=== PATIENT | female | born 1950 | race Caucasian/White ===

== ENCOUNTER → 2017-01-08 | Outpatient (RCR) ==
--- NOTE | 2016-12-15 12:04 | RS.OPPTDN ---
Subjective Date of Note: 12/15/16 Visit #: 6 Date of Evaluation: 11/24/16 Payer Source: MEDICARE Treatment Diagnosis: Low back pain, right LE radiating symptoms Current Subjective/complaints:: Patient reports she feels better overall,but had increased aching the past few days due to having to be out of town and increased time in the car. Pain Assessment - Pain Description Pain Location: low back and right LE Pain Description: Tightness Current Pain Intensity: 3/10 - Heat/Cryotherapy Treatment: Hot Pack (20 mins. prior to manual therapy.) Interventions - Exercise/Activities/Manual Therapy Exercises/Activities: HEP review discussed while receiving manual therapy today. Total minutes of Exercise: 0 Manual Therapy: 30 mins. soft tissue mobilization to lumbar ,R gluteals and R IT band . Total minutes of Manual Therapy: 30 HOME EXERCISE PROGRAM: HS and Piriformis stretch, and hip flexion isometrics ( all for right LE only) - Charges Total Direct Minutes: 30 Total Treatment Time: 50 Procedures billed for this date of service:: hp,manual therapy 2 Assessment: Patient reports relief after sesion today,improved posture in standing,no antalgic gait noted.She reports having fibromyalgia has limited her tolerance to deep tissue massage,as we used min to moderate pressure today with her feed back on how she is tolerating the treatment.Instanding ,she reports less pain with trunk rotation and walking. Patient Education: Education of diagnosis, Body/Joint mechanics, Home Exercise Program, Home Safety, Activity Modification, Education of Plan of Care Patient demonstrates compliance with HEP?: Yes Short Term Goals Goal #1: Pt consistent and independent with HEP. Goal to be met by: 12/08/16 Progress towards Goal:: Progressing Goal #2: Right SLR to 50-55 degrees. Goal to be met by: 12/08/16 Progress towards Goal:: Partially Met Goal #3: Right hip flexion 4+/5. Goal to be met by: 12/08/16 Progress towards Goal:: Progressing Goal #4: Right LE symptoms localized to the right hip/low back. Goal to be met by: 12/08/16 Progress towards Goal:: Progressing Medication Tech Goals Goal #1: Pt knows HEP and to continue ex's to maintain level of function at D/C. Goal to be met by: 01/13/17 Progress towards goal: Progressing Goal #2: Score on Oswestry LBP scale improved to less than 19% impairment. Goal to be met by: 01/13/17 Goal #3: Pt to sleep at night without interruption from LE pain. Goal to be met by: 01/13/17 Progress towards goal: Progressing Goal #4: Pt able to ascend/descend stairs w/ minimal discomfort or difficulty. Goal to be met by: 01/13/17 Progress towards goal: Progressing Plan PLAN OF CARE EXPIRES ON:: 01/13/17 ORDER # VISITS AND/OR THROUGH DATE: 01/13/17 PLAN: Patient can benefit from skilled therapy to decrease radiculopathy in the R hip/LE,increase the extensibility of the hamstrings to rerduce LBP.
--- NOTE | 2016-12-18 12:50 | RS.OPPTDN ---
Subjective Date of Note: 12/18/16 Visit #: 7 Date of Evaluation: 11/24/16 Payer Source: MEDICARE Treatment Diagnosis: Low back pain, right LE radiating symptoms Current Subjective/complaints:: Patient reports relief for about 24 hours after last PT session,also having a good day today.She also reports today she feels elevated on the R side ,referring to her hip and back,but less pain. Pain Assessment - Pain Description Pain Location: low back and right LE Pain Description: Tightness Current Pain Intensity: 3/10 Other Comments regarding Pain:: "slightly less than 3/10 today" - Heat/Cryotherapy Treatment: Hot Pack (20 mins.prior to lumbar traction) - Traction Treatment Method: Mechanical, Intermittent, Lumbar Patient Position: Supine Amount of Force Applied: 45# Hold Time: 30 secs. Rest Time: 5 secs. Duration of treatment: 10 mins. Traction Treatment Comment: Tolerates well. Interventions - Exercise/Activities/Manual Therapy Exercises/Activities: 15 mins. ,SKTC,90/90 hamstring stretches,piriformis stretches. Total minutes of Exercise: 15 Manual Therapy: NA Total minutes of Manual Therapy: 0 HOME EXERCISE PROGRAM: HS and Piriformis stretch, and hip flexion isometrics ( all for right LE only) - Charges Total Direct Minutes: 15 Total Treatment Time: 45 Procedures billed for this date of service:: hp,ex ,traction Assessment: Patient reports less intensity and less duration of pain the past couple of days.Her most tender area to palpate is the origin site of the hamstrings,especially with prolonged sitting.She has no leg length discrepancy noted in supine today. Patient Education: Body/Joint mechanics, Home Exercise Program, Activity Modification, Education of Plan of Care Patient demonstrates compliance with HEP?: Yes Short Term Goals Goal #1: Pt consistent and independent with HEP. Goal to be met by: 12/08/16 Progress towards Goal:: Progressing Goal #2: Right SLR to 50-55 degrees. Goal to be met by: 12/08/16 Progress towards Goal:: Met Goal #3: Right hip flexion 4+/5. Goal to be met by: 12/08/16 Progress towards Goal:: Partially Met Goal #4: Right LE symptoms localized to the right hip/low back. Goal to be met by: 12/08/16 Progress towards Goal:: Progressing Project Development Coordinator Goals Goal #1: Pt knows HEP and to continue ex's to maintain level of function at D/C. Goal to be met by: 01/13/17 Progress towards goal: Partially Met Goal #2: Score on Oswestry LBP scale improved to less than 19% impairment. Goal to be met by: 01/13/17 Goal #3: Pt to sleep at night without interruption from LE pain. Goal to be met by: 01/13/17 Progress towards goal: Progressing Goal #4: Pt able to ascend/descend stairs w/ minimal discomfort or difficulty. Goal to be met by: 01/13/17 Progress towards goal: Progressing Plan PLAN OF CARE EXPIRES ON:: 01/13/17 ORDER # VISITS AND/OR THROUGH DATE: 01/13/17 PLAN: Continue skilled PT to reduce back pain ,especially on uneven surfaces, such as steps.
--- NOTE | 2016-12-25 12:45 | RS.OPPTDN ---
Subjective Date of Note: 12/22/16 Visit #: 8 Date of Evaluation: 11/24/16 Payer Source: MEDICARE Treatment Diagnosis: Low back pain, right LE radiating symptoms Current Subjective/complaints:: Patient reports significant relief after the last session.Pleased with the lumbar traction results. Pain Assessment - Pain Description Pain Location: none today Current Pain Intensity: 0 - Heat/Cryotherapy Treatment: Hot Pack (20 mins. prior to lumbar traction) - Traction Treatment Method: Mechanical, Intermittent, Lumbar Patient Position: Supine Amount of Force Applied: 50# Hold Time: 30 secs Rest Time: 5 secs Duration of treatment: 15 mins. Traction Treatment Comment: tolerates well,but reports brief episode of R LE sciatica during traction ,relieved by re-positioning the leg Interventions - Exercise/Activities/Manual Therapy Exercises/Activities: HEP review only today while on moist heat. Total minutes of Exercise: 0 Manual Therapy: NA Total minutes of Manual Therapy: 0 HOME EXERCISE PROGRAM: HS and Piriformis stretch, SKTC.DKTC as tolerated. - Charges Total Direct Minutes: 0 Total Treatment Time: 35 Procedures billed for this date of service:: hp,traction Assessment: Patient reports relief again today after traction,and also no pain as she stands and exits the clinic.She is tolerating riding in the car better, and less temderness present in the ischial tuberosities upon palpation Patient Education: Education of diagnosis, Body/Joint mechanics, Home Exercise Program, Home Safety, Activity Modification, Education of Plan of Care Patient demonstrates compliance with HEP?: Yes Short Term Goals Goal #1: Pt consistent and independent with HEP. Goal to be met by: 12/08/16 Progress towards Goal:: Progressing Goal #2: Right SLR to 50-55 degrees. Goal to be met by: 12/08/16 Progress towards Goal:: Met Goal #3: Right hip flexion 4+/5. Goal to be met by: 12/08/16 Progress towards Goal:: Partially Met Goal #4: Right LE symptoms localized to the right hip/low back. Goal to be met by: 12/08/16 Progress towards Goal:: Partially Met Color Making Supervisor Goals Goal #1: Pt knows HEP and to continue ex's to maintain level of function at D/C. Goal to be met by: 01/13/17 Progress towards goal: Partially Met Goal #2: Score on Oswestry LBP scale improved to less than 19% impairment. Goal to be met by: 01/13/17 Goal #3: Pt to sleep at night without interruption from LE pain. Goal to be met by: 01/13/17 Progress towards goal: Progressing Goal #4: Pt able to ascend/descend stairs w/ minimal discomfort or difficulty. Goal to be met by: 01/13/17 Progress towards goal: Progressing Plan PLAN OF CARE EXPIRES ON:: 01/13/17 ORDER # VISITS AND/OR THROUGH DATE: 01/13/17 PLAN: Continue PT to localize and minimize LBP,eliminate scitica in the R LE.
--- NOTE | 2016-12-25 12:55 | RS.OPPTDN ---
Subjective Date of Note: 12/25/16 Visit #: 9 Date of Evaluation: 11/24/16 Payer Source: MEDICARE Treatment Diagnosis: Low back pain, right LE radiating symptoms Current Subjective/complaints:: Patient reports she felt good the day of last treatment ,but the sciatica was present yesterday and today.We discussed doing traction with less poundage and less session time. Pain Assessment - Pain Description Pain Location: none today Pain Description: Radiating Current Pain Intensity: 2-3 - Traction Treatment Method: Mechanical, Intermittent, Lumbar Patient Position: Supine Amount of Force Applied: 45 Hold Time: 30 secs. Rest Time: 5 secs. Duration of treatment: 10 mins. Traction Treatment Comment: Tolerated better with no radiculopathy present today. Interventions - Exercise/Activities/Manual Therapy Exercises/Activities: 20 mins. SKTC,DKTC,90/90 hamstring stretches,piriformis stretch on R. Total minutes of Exercise: 20 Manual Therapy: NA Total minutes of Manual Therapy: 0 HOME EXERCISE PROGRAM: HS and Piriformis stretch, SKTC.DKTC as tolerated. - Charges Total Direct Minutes: 30 Total Treatment Time: 50 Procedures billed for this date of service:: hp,ex, traction Assessment: Patient has less frequency and duration of pain in general while doing ADL's.She has improved hamstring extensibility,reducing the tenderness at the origin of hamstrings. Patient Education: Education of diagnosis, Body/Joint mechanics, Home Exercise Program, Home Safety, Activity Modification, Education of Plan of Care Patient demonstrates compliance with HEP?: Yes Short Term Goals Goal #1: Pt consistent and independent with HEP. Goal to be met by: 12/08/16 Progress towards Goal:: Partially Met Goal #2: Right SLR to 50-55 degrees. Goal to be met by: 12/08/16 Progress towards Goal:: Met Goal #3: Right hip flexion 4+/5. Goal to be met by: 12/08/16 Progress towards Goal:: Met Goal #4: Right LE symptoms localized to the right hip/low back. Goal to be met by: 12/08/16 Progress towards Goal:: Partially Met Torch Heater Goals Goal #1: Pt knows HEP and to continue ex's to maintain level of function at D/C. Goal to be met by: 01/13/17 Progress towards goal: Partially Met Goal #2: Score on Oswestry LBP scale improved to less than 19% impairment. Goal to be met by: 01/13/17 Goal #3: Pt to sleep at night without interruption from LE pain. Goal to be met by: 01/13/17 Progress towards goal: Progressing Goal #4: Pt able to ascend/descend stairs w/ minimal discomfort or difficulty. Goal to be met by: 01/13/17 Progress towards goal: Progressing Plan PLAN OF CARE EXPIRES ON:: 01/13/17 ORDER # VISITS AND/OR THROUGH DATE: 01/13/17 PLAN: Continue treatment to localize the LBP,strengthen LE's and trunk for stability.
--- NOTE | 2016-12-29 13:05 | RS.OPPTDN ---
Subjective Date of Note: 12/29/16 Visit #: 10 Date of Evaluation: 11/24/16 Payer Source: MEDICARE Treatment Diagnosis: Low back pain, right LE radiating symptoms Current Subjective/complaints:: Reports having a good day today ,very minimal pain currently.She reports standing in one position for prolonged times causes her pain to elevate,such as while cooking.She had follow up appt. last week at [facility],has orders to continue PT. Pain Assessment - Pain Description Pain Description: Dull, Aching Current Pain Intensity: 02/18 - Traction Treatment Method: Mechanical, Intermittent, Lumbar Patient Position: Supine Amount of Force Applied: 45 Hold Time: 30 secs. Rest Time: 5 secs. Duration of treatment: 15mins. Interventions - Exercise/Activities/Manual Therapy Exercises/Activities: HEP review of SKTC,DKTC,90/90 hamstring stretches, piriformis stretch on R. Total minutes of Exercise: 0 Manual Therapy: NA Total minutes of Manual Therapy: 0 HOME EXERCISE PROGRAM: HS and Piriformis stretch, SKTC.DKTC as tolerated. - Charges Total Direct Minutes: 0 Total Treatment Time: 40 Procedures billed for this date of service:: hp,traction Assessment: Patient reports significant relief from traction.Her intensity and frequency of LBP is better.She reports sleeping better ,going up and down steps with less pain. Patient Education: Education of diagnosis, Body/Joint mechanics, Home Exercise Program, Home Safety, Activity Modification, Education of Plan of Care Patient demonstrates compliance with HEP?: Yes Short Term Goals Goal #1: Pt consistent and independent with HEP. Goal to be met by: 12/08/16 Progress towards Goal:: Partially Met Goal #2: Right SLR to 50-55 degrees. Goal to be met by: 12/08/16 Progress towards Goal:: Met Goal #3: Right hip flexion 4+/5. Goal to be met by: 12/08/16 Progress towards Goal:: Met Goal #4: Right LE symptoms localized to the right hip/low back. Goal to be met by: 12/08/16 Progress towards Goal:: Partially Met Senior Living Goals Goal #1: Pt knows HEP and to continue ex's to maintain level of function at D/C. Goal to be met by: 01/13/17 Progress towards goal: Partially Met Goal #2: Score on Oswestry LBP scale improved to less than 19% impairment. Goal to be met by: 01/13/17 Goal #3: Pt to sleep at night without interruption from LE pain. Goal to be met by: 01/13/17 Progress towards goal: Progressing Goal #4: Pt able to ascend/descend stairs w/ minimal discomfort or difficulty. Goal to be met by: 01/13/17 Progress towards goal: Progressing Plan PLAN OF CARE EXPIRES ON:: 01/13/17 ORDER # VISITS AND/OR THROUGH DATE: 01/13/17 PLAN: Continue PT to improve core strength , and LE strength ,resulting less back pain with ADL's.
--- NOTE | 2016-12-31 13:01 | RS.OPPTDN ---
Subjective Date of Note: 12/31/16 Visit #: 11 Date of Evaluation: 11/24/16 Payer Source: MEDICARE Treatment Diagnosis: Low back pain, right LE radiating symptoms Current Subjective/complaints:: Patient reports going to ball game last night, tolerated it better by frequently changing positions for pressure relief.No pain today. Pain Assessment - Pain Description Pain Location: low back/hips Pain Description: 0 - Heat/Cryotherapy Treatment: Hot Pack (20 mins. prior to exercises and traction) - Traction Treatment Method: Mechanical, Intermittent, Lumbar Patient Position: Supine Amount of Force Applied: 45# Hold Time: 30 secs. Rest Time: 5 secs. Duration of treatment: 15 mins. Interventions - Exercise/Activities/Manual Therapy Exercises/Activities: Patient instructed in yellow theraband exercises for postural pullbacks at different angles of pull for core strengthening. Total minutes of Exercise: 15 Manual Therapy: NA HOME EXERCISE PROGRAM: HS and Piriformis stretch, SKTC.DKTC as tolerated. - Charges Total Direct Minutes: 15 Total Treatment Time: 50 Procedures billed for this date of service:: hp,ex 1,traction Assessment: Patient progressing well.She is tolerating longer time periods of sitting with less back pain.She reports it is easier to go up steps,but comes down steps sideways more for safety ,not pain related.Her pain when present is now more localized,less radiculopathy. Patient Education: Body/Joint mechanics, Home Exercise Program, Home Safety, Activity Modification, Education of Plan of Care Patient demonstrates compliance with HEP?: Yes Short Term Goals Goal #1: Pt consistent and independent with HEP. Goal to be met by: 12/08/16 Progress towards Goal:: Partially Met Goal #2: Right SLR to 50-55 degrees. Goal to be met by: 12/08/16 Progress towards Goal:: Met Goal #3: Right hip flexion 4+/5. Goal to be met by: 12/08/16 Progress towards Goal:: Met Goal #4: Right LE symptoms localized to the right hip/low back. Goal to be met by: 12/08/16 Progress towards Goal:: Partially Met Local Area Network Systems Adminstrator Goals Goal #1: Pt knows HEP and to continue ex's to maintain level of function at D/C. Goal to be met by: 01/13/17 Progress towards goal: Partially Met Goal #2: Score on Oswestry LBP scale improved to less than 19% impairment. Goal to be met by: 01/13/17 Goal #3: Pt to sleep at night without interruption from LE pain. Goal to be met by: 01/13/17 Progress towards goal: Partially Met Goal #4: Pt able to ascend/descend stairs w/ minimal discomfort or difficulty. Goal to be met by: 01/13/17 Progress towards goal: Progressing Plan PLAN OF CARE EXPIRES ON:: 01/13/17 ORDER # VISITS AND/OR THROUGH DATE: 01/13/17 PLAN: Progress to core strengthening as the back pain lessens.
--- NOTE | 2017-01-02 13:35 | RS.PTSUM ---
Progress Note/Summary Date of Note: 12/29/16 Date of Evaluation: 11/24/16 Number of Visits: 10 Reporting Period for this Progress Note: 11/24/16 through 12/29/16 Current Complaints/Gains: Patient states she is pleased with her progress.She continues to have difficulty with prolonged sitting or standing, but the pain is less intense. Objective Measurements/Presentation: Improved ability to ascend/descend stairs with less pain. Sleeping is better. Reports less frequency of sciatica. SLR does not reproduce pain. G Codes: Body pos current CJ. body pos goal CI Source of G Code Score: Oswestry LBP - Short Term Goals Goal #1: Pt consistent and independent with HEP. Goal to be met by: 01/16/17 Progress towards Goal:: Partially Met Goal #2: Right SLR to 50-55 degrees. Goal to be met by: 12/08/16 Progress towards Goal:: Met Goal #3: Right hip flexion 4+/5. Goal to be met by: 12/08/16 Progress towards Goal:: Met Goal #4: Right LE symptoms localized to the right hip/low back. Goal to be met by: 01/16/17 Progress towards Goal:: Partially Met - Pathology Collector Goals Goal #1: Pt knows HEP and to continue ex's to maintain level of function at D/C. Goal to be met by: 02/01/17 Progress towards goal: Partially Met Goal #2: Score on Oswestry LBP scale improved to less than 19% impairment. Goal to be met by: 02/01/17 Goal #3: Pt to sleep at night without interruption from LE pain. Goal to be met by: 02/01/17 Progress towards goal: Partially Met Goal #4: Pt able to ascend/descend stairs w/ minimal discomfort or difficulty. Goal to be met by: 02/01/17 Progress towards goal: Progressing - Assessment Assessment of Improvement/Progress: Patient reports less intensity of pain. She is sleeping better. Reports continued difficulty with prolonged sitting and standing. Received new order for continued treatment. Patient would like to continue. She shows potential to benefit from further therapy to get more relief of pain. - Plan Plan: Continue Plan of Care PLAN OF CARE EXPIRES ON:: 02/01/17 ORDER # VISITS AND/OR THROUGH DATE: 02/01/17
--- NOTE | 2017-01-05 12:10 | RS.OPPTDN ---
Subjective Date of Note: 01/05/17 Visit #: 12 Date of Evaluation: 11/24/16 Payer Source: MEDICARE Treatment Diagnosis: Low back pain, right LE radiating symptoms Current Subjective/complaints:: Reports feeling good today,has been doing her stretches over the weekend. Pain Assessment - Pain Description Current Pain Intensity: 0 - Heat/Cryotherapy Treatment: Hot Pack (20 mins. prior to ex and traction) - Traction Treatment Method: Mechanical, Intermittent, Lumbar Patient Position: Supine Amount of Force Applied: 45# Hold Time: 30 secs. Rest Time: 5 secs. Duration of treatment: 20 mins. Traction Treatment Comment: Tolerates well today. Interventions - Exercise/Activities/Manual Therapy Exercises/Activities: 15 mins. total of 90/90 hams. stretch,piriformis stretch, alternating hip flexion.4-pt. quads,20.Step-ups on 4 " step x 10 reps. Total minutes of Exercise: 15 Manual Therapy: NA HOME EXERCISE PROGRAM: HS and Piriformis stretch, SKTC.DKTC as tolerated. - Charges Total Direct Minutes: 15 Total Treatment Time: 55 Procedures billed for this date of service:: hp,ex,traction Assessment: Patient reports sleeping better in different positions.He r LE and core strength is improvong.She is tolerating prolonged standing positions better with less difficulty.She has improved awareness of position when symptoms appear. Patient Education: Education of diagnosis, Body/Joint mechanics, Home Exercise Program, Home Safety, Activity Modification, Education of Plan of Care Patient demonstrates compliance with HEP?: Yes Short Term Goals Goal #1: Pt consistent and independent with HEP. Goal to be met by: 01/16/17 Progress towards Goal:: Partially Met Goal #2: Right SLR to 50-55 degrees. Goal to be met by: 12/08/16 Progress towards Goal:: Met Goal #3: Right hip flexion 4+/5. Goal to be met by: 12/08/16 Progress towards Goal:: Met Goal #4: Right LE symptoms localized to the right hip/low back. Goal to be met by: 01/16/17 Progress towards Goal:: Partially Met Retirement Goals Goal #1: Pt knows HEP and to continue ex's to maintain level of function at D/C. Goal to be met by: 02/01/17 Progress towards goal: Partially Met Goal #2: Score on Oswestry LBP scale improved to less than 19% impairment. Goal to be met by: 02/01/17 Progress towards goal: Progressing Goal #3: Pt to sleep at night without interruption from LE pain. Goal to be met by: 02/01/17 Progress towards goal: Partially Met Goal #4: Pt able to ascend/descend stairs w/ minimal discomfort or difficulty. Goal to be met by: 02/01/17 Progress towards goal: Progressing Plan PLAN OF CARE EXPIRES ON:: 02/01/17 ORDER # VISITS AND/OR THROUGH DATE: 02/01/17 PLAN: Continue PT to eliminate back pain during ADL 's.
--- NOTE | 2017-01-08 12:59 | RS.OPPTDN ---
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 Pain Assessment - Pain Description Current Pain Intensity: 0 at rest - Heat/Cryotherapy Treatment: Hot Pack (20 mins. prior to traction.) - Traction Treatment Method: Mechanical, Intermittent, Lumbar Patient Position: Supine Amount of Force Applied: 50 # Hold Time: 30 secs. Rest Time: 5 secs. Duration of treatment: 15 mins. Traction Treatment Comment: Tolerates well. Interventions - Exercise/Activities/Manual Therapy Exercises/Activities: N/A Total minutes of Exercise: 0 Manual Therapy: NA Total minutes of Manual Therapy: 0 HOME EXERCISE PROGRAM: HS and Piriformis stretch, SKTC.DKTC as tolerated. - Charges Total Direct Minutes: 0 Total Treatment Time: 35 Procedures billed for this date of service:: hp,traction Assessment: Patient progressing toward rehab goals,reports less frequency and duration of low back pain while doing daily tasks.She is highly motivated to improve , compliant to all recommendations of the therapy staff. Patient Education: Body/Joint mechanics, Education of Plan of Care Patient demonstrates compliance with HEP?: Yes Short Term Goals Goal #1: Pt consistent and independent with HEP. Goal to be met by: 01/16/17 Progress towards Goal:: Partially Met Goal #2: Right SLR to 50-55 degrees. Goal to be met by: 12/08/16 Progress towards Goal:: Met Goal #3: Right hip flexion 4+/5. Goal to be met by: 12/08/16 Progress towards Goal:: Met Goal #4: Right LE symptoms localized to the right hip/low back. Goal to be met by: 01/16/17 Progress towards Goal:: Partially Met [facility] Goals Goal #1: Pt knows HEP and to continue ex's to maintain level of function at D/C. Goal to be met by: 02/01/17 Progress towards goal: Partially Met Goal #2: Score on Oswestry LBP scale improved to less than 19% impairment. Goal to be met by: 02/01/17 Progress towards goal: Progressing Goal #3: Pt to sleep at night without interruption from LE pain. Goal to be met by: 02/01/17 Progress towards goal: Partially Met Goal #4: Pt able to ascend/descend stairs w/ minimal discomfort or difficulty. Goal to be met by: 02/01/17 Progress towards goal: Partially Met Plan PLAN OF CARE EXPIRES ON:: 02/01/17 ORDER # VISITS AND/OR THROUGH DATE: 02/01/17 PLAN: Continue PT to resolve back pain ,improve core and LE strength.
== END ==
PROVIDERS: ATTEND Orthopaedic Surgery Orthopaedic Surgery of the Spine
DX: M54.5 Low back pain (principal)

== ENCOUNTER 2017-01-29 11:00 | Outpatient (RCR) ==
--- NOTE | 2017-01-12 11:59 | RS.OPPTDN ---
Subjective Date of Note: 01/12/17 Visit #: 14 Date of Evaluation: 11/24/16 Payer Source: MEDICARE Treatment Diagnosis: Low back pain, right LE radiating symptoms Current Subjective/complaints:: Patient reports having a good weekend, tolerating sitting for longer time periods ,such as at ball games.NO pain today, has slight muscle sorenes only in the midback. Pain Assessment - Pain Description Current Pain Intensity: 0 - Heat/Cryotherapy Treatment: Hot Pack (20 mins. prior to exercises and traction) - Traction Treatment Method: Mechanical, Intermittent, Lumbar Patient Position: Supine Amount of Force Applied: 50 Hold Time: 30 secs. Rest Time: 5 secs. Duration of treatment: 15 mins. Traction Treatment Comment: Tolerates well. Interventions - Exercise/Activities/Manual Therapy Exercises/Activities: SKTC ,DKTC ,90 /90 hamstring stretches,piriformis stretches.Alternating hip flexion , 3/10 with 4# ,in hooklying position. Total minutes of Exercise: 20 Manual Therapy: NA Total minutes of Manual Therapy: 0 HOME EXERCISE PROGRAM: HS and Piriformis stretch, SKTC.DKTC as tolerated. - Charges Timed Code Treatment Minutes: 50 Total Treatment Time: 55 Procedures billed for this date of service:: hp,ex ,traction Assessment: Patient reports sleeping better ,able to sleep in different positions without elevating or causing pain.She also tolerates gonig up and down steps with less difficulty.She has improved posture awareness. Patient Education: Education of diagnosis, Body/Joint mechanics, Home Exercise Program, Home Safety, Activity Modification, Education of Plan of Care Patient demonstrates compliance with HEP?: Yes Short Term Goals Goal #1: Pt consistent and independent with HEP. Goal to be met by: 01/16/17 Progress towards Goal:: Partially Met Goal #2: Right SLR to 50-55 degrees. Goal to be met by: 12/08/16 Progress towards Goal:: Met Goal #3: Right hip flexion 4+/5. Goal to be met by: 12/08/16 Progress towards Goal:: Met Goal #4: Right LE symptoms localized to the right hip/low back. Goal to be met by: 01/16/17 Progress towards Goal:: Partially Met [facility] Goals Goal #1: Pt knows HEP and to continue ex's to maintain level of function at D/C. Goal to be met by: 02/01/17 Progress towards goal: Partially Met Goal #2: Score on Oswestry LBP scale improved to less than 19% impairment. Goal to be met by: 02/01/17 Progress towards goal: Progressing Goal #3: Pt to sleep at night without interruption from LE pain. Goal to be met by: 02/01/17 Progress towards goal: Met Goal #4: Pt able to ascend/descend stairs w/ minimal discomfort or difficulty. Goal to be met by: 02/01/17 Progress towards goal: Partially Met Plan PLAN OF CARE EXPIRES ON:: 02/01/17 ORDER # VISITS AND/OR THROUGH DATE: 02/01/17 PLAN: Continue PT to return patient of PLOF,eliminate or mnimize back pain with ADL's.
--- NOTE | 2017-01-15 12:29 | RS.OPPTDN ---
Subjective Date of Note: 01/15/17 Visit #: 15 Date of Evaluation: 11/24/16 Payer Source: MEDICARE Treatment Diagnosis: Low back pain, right LE radiating symptoms Current Subjective/complaints:: Reports muscle spasms in the midback yesterday, but overall feels she is much better. Pain Assessment - Pain Description Pain Description: Dull, Aching Current Pain Intensity: not rated - Heat/Cryotherapy Treatment: Hot Pack (20 ins. prior to ex and traction) - Traction Treatment Method: Mechanical, Intermittent, Lumbar Patient Position: Supine Amount of Force Applied: 45 # Hold Time: 30 secs. Rest Time: 5 secs. Duration of treatment: 20 mins. Traction Treatment Comment: Tolerates well. Interventions - Exercise/Activities/Manual Therapy Exercises/Activities: Corner stretches and scapular pro/retraction exercises.HEP review. Total minutes of Exercise: 15 Manual Therapy: NA Total minutes of Manual Therapy: 0 HOME EXERCISE PROGRAM: HS and Piriformis stretch, SKTC.DKTC as tolerated. - Charges Timed Code Treatment Minutes: 35 Total Treatment Time: 55 Procedures billed for this date of service:: hp,ex ,traction Assessment: Progressing well towrd rehab goals ,less intense pain in the back with ADL's.She is very compliat to HEP. Patient Education: Education of diagnosis, Body/Joint mechanics, Home Exercise Program, Home Safety, Activity Modification, Education of Plan of Care Patient demonstrates compliance with HEP?: Yes Short Term Goals Goal #1: Pt consistent and independent with HEP. Goal to be met by: 01/16/17 Progress towards Goal:: Partially Met Goal #2: Right SLR to 50-55 degrees. Goal to be met by: 12/08/16 Progress towards Goal:: Met Goal #3: Right hip flexion 4+/5. Goal to be met by: 12/08/16 Progress towards Goal:: Met Goal #4: Right LE symptoms localized to the right hip/low back. Goal to be met by: 01/16/17 Progress towards Goal:: Met [facility] Goals Goal #1: Pt knows HEP and to continue ex's to maintain level of function at D/C. Goal to be met by: 02/01/17 Progress towards goal: Partially Met Goal #2: Score on Oswestry LBP scale improved to less than 19% impairment. Goal to be met by: 02/01/17 Progress towards goal: Progressing Goal #3: Pt to sleep at night without interruption from LE pain. Goal to be met by: 02/01/17 Progress towards goal: Met Goal #4: Pt able to ascend/descend stairs w/ minimal discomfort or difficulty. Goal to be met by: 02/01/17 Progress towards goal: Partially Met Plan PLAN OF CARE EXPIRES ON:: 02/01/17 ORDER # VISITS AND/OR THROUGH DATE: 02/01/17 PLAN: Cont. PT to eliminate back pain ,improve body mechanics for ADL's.
--- NOTE | 2017-01-19 14:08 | RS.OPPTDN ---
Subjective Date of Note: 01/19/17 Visit #: 16 Date of Evaluation: 11/24/16 Payer Source: MEDICARE Treatment Diagnosis: Low back pain, right LE radiating symptoms Current Subjective/complaints:: Patient reports lifting groceries Thursday night and aggravated her back again,has some sciatica present in the R side today. Pain Assessment - Pain Description Pain Description: Radiating, Throbbing, Aching Current Pain Intensity: 2/10 - Heat/Cryotherapy Treatment: Hot Pack (20 mins. to lumbar in supine,prior to exercises) - Traction Treatment Method: Mechanical, Intermittent, Lumbar Patient Position: Supine Amount of Force Applied: 45 # Hold Time: 30 secs. Rest Time: 5 secs. Duration of treatment: 20 mins. Traction Treatment Comment: Minimal sciatica during traction. Interventions - Exercise/Activities/Manual Therapy Exercises/Activities: SKTC,DKTC,90/90 hamstring stretches,piriformis stretches. Total minutes of Exercise: 10 Manual Therapy: NA Total minutes of Manual Therapy: 0 HOME EXERCISE PROGRAM: HS and Piriformis stretch, SKTC.DKTC as tolerated. - Charges Timed Code Treatment Minutes: 30 Total Treatment Time: 50 Procedures billed for this date of service:: hp,ex,traction Assessment: Patient has increased hamstring tightness today R > L,but responds to stretches well.She is progressing toward rehab goals. Patient Education: Education of diagnosis, Body/Joint mechanics, Home Exercise Program, Home Safety, Activity Modification, Education of Plan of Care Patient demonstrates compliance with HEP?: Yes Short Term Goals Goal #1: Pt consistent and independent with HEP. Goal to be met by: 01/16/17 Progress towards Goal:: Partially Met Goal #2: Right SLR to 50-55 degrees. Goal to be met by: 12/08/16 Progress towards Goal:: Met Goal #3: Right hip flexion 4+/5. Goal to be met by: 12/08/16 Progress towards Goal:: Met Goal #4: Right LE symptoms localized to the right hip/low back. Goal to be met by: 01/16/17 Progress towards Goal:: Met [employer] Goals Goal #1: Pt knows HEP and to continue ex's to maintain level of function at D/C. Goal to be met by: 02/01/17 Progress towards goal: Met Goal #2: Score on Oswestry LBP scale improved to less than 19% impairment. Goal to be met by: 02/01/17 Progress towards goal: Progressing Goal #3: Pt to sleep at night without interruption from LE pain. Goal to be met by: 02/01/17 Progress towards goal: Met Goal #4: Pt able to ascend/descend stairs w/ minimal discomfort or difficulty. Goal to be met by: 02/01/17 Progress towards goal: Partially Met Plan PLAN OF CARE EXPIRES ON:: 02/01/17 ORDER # VISITS AND/OR THROUGH DATE: 02/01/17 PLAN: Continue to increase core strength ,relieve back pain.
--- NOTE | 2017-01-22 12:00 | RS.OPPTDN ---
Subjective Date of Note: 01/22/17 Visit #: 17 Date of Evaluation: 11/24/16 Payer Source: MEDICARE Treatment Diagnosis: Low back pain, right LE radiating symptoms Current Subjective/complaints:: Reports the muscle soreness in the upper back is lessening.No low back pain present currently. Pain Assessment - Pain Description Current Pain Intensity: 0 in lumbar Other Comments regarding Pain:: soreness between scapulae - Heat/Cryotherapy Treatment: Hot Pack (20 mins. prior to ex and traction) - Traction Treatment Method: Mechanical, Intermittent, Lumbar Patient Position: Supine Amount of Force Applied: 45# Hold Time: 30 secs. Rest Time: 5 secs. Duration of treatment: 20 mins. Traction Treatment Comment: Tolerates well. Interventions - Exercise/Activities/Manual Therapy Exercises/Activities: 20 mins. SKTC,DKTC,90/90 hamstring stretches,piriformis stretches,LTR in hooklying position. Total minutes of Exercise: 20 Manual Therapy: NA Total minutes of Manual Therapy: 0 HOME EXERCISE PROGRAM: HS and Piriformis stretch, SKTC.DKTC as tolerated. - Charges Timed Code Treatment Minutes: 40 Total Treatment Time: 60 Procedures billed for this date of service:: hp,ex ,traction Assessment: Patient progressing well,reports increased tolerance for walking and sitting .The static stance still elevates her back pain.She has good understanding of body mechanics and pain control. Patient Education: Education of diagnosis, Body/Joint mechanics, Home Exercise Program, Home Safety, Activity Modification, Education of Plan of Care Patient demonstrates compliance with HEP?: Yes Short Term Goals Goal #1: Pt consistent and independent with HEP. Goal to be met by: 01/16/17 Progress towards Goal:: Partially Met Goal #2: Right SLR to 50-55 degrees. Goal to be met by: 12/08/16 Progress towards Goal:: Met Goal #3: Right hip flexion 4+/5. Goal to be met by: 12/08/16 Progress towards Goal:: Met Goal #4: Right LE symptoms localized to the right hip/low back. Goal to be met by: 01/16/17 Progress towards Goal:: Met [employer] Goals Goal #1: Pt knows HEP and to continue ex's to maintain level of function at D/C. Goal to be met by: 02/01/17 Progress towards goal: Met Goal #2: Score on Oswestry LBP scale improved to less than 19% impairment. Goal to be met by: 02/01/17 Progress towards goal: Progressing Goal #3: Pt to sleep at night without interruption from LE pain. Goal to be met by: 02/01/17 Progress towards goal: Met Goal #4: Pt able to ascend/descend stairs w/ minimal discomfort or difficulty. Goal to be met by: 02/01/17 Progress towards goal: Partially Met Plan PLAN OF CARE EXPIRES ON:: 02/01/17 ORDER # VISITS AND/OR THROUGH DATE: 02/01/17 PLAN: Continue PT to achieve PLOF.
--- NOTE | 2017-01-29 13:09 | RS.OPPTDN ---
Subjective Date of Note: 01/29/17 Visit #: 18 Date of Evaluation: 11/24/16 Payer Source: MEDICARE Treatment Diagnosis: Low back pain, right LE radiating symptoms Current Subjective/complaints:: Pleased with her progress,agrees with D/C plan today. Pain Assessment - Pain Description Current Pain Intensity: 0 - Heat/Cryotherapy Treatment: Hot Pack (20 mins. prior to ex ,traction) - Traction Treatment Method: Mechanical, Intermittent, Lumbar Patient Position: Supine Hold Time: 30 secs. Rest Time: 5 secs. Duration of treatment: 20 mins. Traction Treatment Comment: Tolerates well. Interventions - Exercise/Activities/Manual Therapy Exercises/Activities: 15 mins. SKTC,DKTC,90/90 hamstring stretches,piriformis stretches,LTR in hooklying position. Total minutes of Exercise: 15 Manual Therapy: NA Total minutes of Manual Therapy: 0 HOME EXERCISE PROGRAM: HS and Piriformis stretch, SKTC.DKTC as tolerated. - Charges Timed Code Treatment Minutes: 35 Total Treatment Time: 55 Procedures billed for this date of service:: hp,ex,traction Assessment: Patient progressed well,has no pain today.She tolerates up/down steps with less difficulty,no sciatica present with standing ADL's.She has good knowledge of HEP and body mechanics. Patient Education: Education of diagnosis, Body/Joint mechanics, Home Exercise Program, Home Safety, Activity Modification, Education of Plan of Care Patient demonstrates compliance with HEP?: Yes Short Term Goals Goal #1: Pt consistent and independent with HEP. Goal to be met by: 01/16/17 Progress towards Goal:: Met Goal #2: Right SLR to 50-55 degrees. Goal to be met by: 12/08/16 Progress towards Goal:: Met Goal #3: Right hip flexion 4+/5. Goal to be met by: 12/08/16 Progress towards Goal:: Met Goal #4: Right LE symptoms localized to the right hip/low back. Goal to be met by: 01/16/17 Progress towards Goal:: Met [facility] Goals Goal #1: Pt knows HEP and to continue ex's to maintain level of function at D/C. Goal to be met by: 02/01/17 Progress towards goal: Met Goal #2: Score on Oswestry LBP scale improved to less than 19% impairment. Goal to be met by: 02/01/17 Progress towards goal: Progressing Goal #3: Pt to sleep at night without interruption from LE pain. Goal to be met by: 02/01/17 Progress towards goal: Met Goal #4: Pt able to ascend/descend stairs w/ minimal discomfort or difficulty. Goal to be met by: 02/01/17 Progress towards goal: Met Plan PLAN OF CARE EXPIRES ON:: 02/01/17 ORDER # VISITS AND/OR THROUGH DATE: 02/01/17 PLAN: D/C
--- NOTE | 2017-01-30 15:33 | RS.OPPTDC ---
Date of Discharge: 01/30/17 Date of Evaluation: 11/24/16 Number of Visits: 18 Treatment Diagnosis: Low back pain, right LE radiating symptoms Current Complaints/Gains: Patient states she is pleased with her progress with therapy. States she feels so much better than when she started therapy. Reports no pain on last visit and feels confident with HEP. Reports being able to sleep without limitation from pain. Reports being able to ascend and descend steps much better with better safety and minimal to no pain. Functional Outcome Measure Oswestry LBP: 30 - G Codes & Severity Modifier G Codes & Modifier: body pos goal CI. Body pos D/C CJ Source of G Code score: oswestry LBP Interventions - Exercise/Activities/Manual Therapy Exercises/Activities: NA Manual Therapy: NA HOME EXERCISE PROGRAM: HS and Piriformis stretch, SKTC.DKTC as tolerated. - Objective Findings Observations,measurements,etc.: Patient independent with HEP. Demonstrates negative SLR test. Hip flexor strength 5-/5. - Charges Timed Code Treatment Minutes: NA Total Treatment Time: NA Procedures billed for this date of service:: NA Assessment Assessment: Patient very pleased with progress with therapy. She met all her STG 's and all but one LTG. LTG regarding score on Oswestry is not met, but she has made good progress. She presents to have met her max potential with therapy and is confident that she can continue her HEP at home. Short Term Goals Goal #1: Pt consistent and independent with HEP. Goal to be met by: 01/16/17 Progress towards Goal:: Met Goal #2: Right SLR to 50-55 degrees. Goal to be met by: 12/08/16 Progress towards Goal:: Met Goal #3: Right hip flexion 4+/5. Goal to be met by: 12/08/16 Progress towards Goal:: Met Goal #4: Right LE symptoms localized to the right hip/low back. Goal to be met by: 01/16/17 Progress towards Goal:: Met [facility] Goals Goal #1: Pt knows HEP and to continue ex's to maintain level of function at D/C. Goal to be met by: 02/01/17 Progress towards goal: Met Goal #2: Score on Oswestry LBP scale improved to less than 19% impairment. Goal to be met by: 02/01/17 Progress towards goal: Not Met Goal #3: Pt to sleep at night without interruption from LE pain. Goal to be met by: 02/01/17 Progress towards goal: Met Goal #4: Pt able to ascend/descend stairs w/ minimal discomfort or difficulty. Goal to be met by: 02/01/17 Progress towards goal: Met Plan Reason for Discharge:: Maximum Potential Met
== END 2017-02-08 ==
PROVIDERS: ATTEND Orthopaedic Surgery Orthopaedic Surgery of the Spine
DX: M54.5 Low back pain (principal)

== ENCOUNTER 2017-08-07 14:00 | Outpatient (RCR) ==
--- NOTE | 2017-08-05 16:09 | RS.OPPTEV2 ---
Date of Note: 08/05/17 Visit #: 1 Date of Evaluation: 08/05/17 Payer Source: MEDICARE Surgery Performed?: No Treatment Diagnosis: Lumbar disc degeneration History of Condition/Mechanism of Injury:: pt reports she suffered fall in 2017 with increased pain after fall but has had increased pain especially since 06/2017. Prior Level of Function.....Patient was independent with: ADL's, Self Care, Caregiving, Ambulation/Mobility, Community Integration/Access Functional Limitations: Sleep, ADL's, Sitting, Standing, Ambulation, Community Access/Integration Current Subjective/complaints:: pt states her shlds, neck and low back feel so tight and heavy like she is wearing a lead apron. pt states she is unable to sit for long periods due to pain in ischial tuberosity. Treatment Side (optional): N/A *Precautions: pt with h/o breast CA Medical History Medical History: Diabetes, Arthritis, Cancer (breast) Medical History Comments:: Fibromyalgia Surgical History: Cholecystectomy, Hysterectomy Surgical History Comments:: Double Mastectomy Smoking Status: Never smoker Diagnostic Testing/Imaging:: MRI 03/14/17. worse degerative disk disease L1-2, L2 -3 as well as L4-5 with disc bulge at L 4-5, central and bilateral foraminal stenosis at L5-S1 with spondylolisthesis. Hx Home Medications: Celebrex, Lisinopril, Trazodone, Metformin Patient's Goals: decrease pain and tightness. Pain Assessment - Pain Description Pain Location: low lumbar/sacral area, as well as upper trap, cervical area Pain Description: Tightness, Aching, Chronic Current Pain Intensity: 5 Worst Pain Intensity: 8 Functional Outcome Measure Oswestry LBP: 24 (48%) - G Codes & Severity Modifier G Codes & Modifier: mobility walking and moving around current CK. moblity walking and moving around goal CI Source of G Code score: oswestry low back pain scale Observation - Observation Inspection: pt reports cannot sleep more than a couple of hours without interruption Posture: Forward Head, Rounded Shoulders, Increased Thoracic Kyphosis, Decreased Lumbar Lordosis Handedness: Right Gait - Gait Pattern General Gait Pattern Observation: No Deviations/Normal General Range of Motion: BUE WFL's. BLE WFL's Muscle Strength: BUE grossly 4+/5. BLE grossly 4+/5 - ROM Cervical Spine Range of Motion Limitations: Soft Tissue Tightness, Muscle Weakness, Pain Comments: pt with Cervical ROM WFL's with pain with cervical ext as well as rotation. pt with trigger points and muscle tightness noted to upper trap region - ROM Lumbar Flexion: Hand reach to Mid-Shins Sidebending to Left: Reach to Lateral Joint Line Sidebending to Right: Reach to Lateral Joint Line Lumbar Spine ROM Limitations: Soft Tissue Tightness, Muscle Weakness, Pain Comments: pt with increased pain with lumbar Flex and ext. - Special Tests DANIKA Test: Positive Left, Positive Right SLR Test: Positive Left, Positive Right Palpation Palpation Findings: Tenderness, Muscle Guarding Comments:: lower lumbar/sacral area muscle guarding and trigger points noted. Sensation - Sensation Right Upper Extremity: Intact/Normal Left Upper Extremity: Intact/Normal Right Lower Extremity: Impaired (tingling R foot) Left Lower Extremity: Intact/Normal Balance - Sitting Balance Static Sitting Balance: Normal Dynamic Sitting Balance: Normal - Standing Balance Static Standing Balance: Normal Dynamic Standing Balance: Normal - Heat/Cryotherapy Treatment: Hot Pack Comments:: lumbosacral area Interventions - Exercise/Activities/Manual Therapy Exercises/Activities: pt received hamstring stretches, piriformis stretch Manual Therapy: NA HOME EXERCISE PROGRAM: pt given written HEP including hamstring stretch, piriformis stretch, double knee to chest, lumbar rotation, standing lum ext. - Charges Timed Code Treatment Minutes: 51 Total Treatment Time: 62 Procedures billed for this date of service:: eval med and hot pack EVALUATION COMPLEXITY LEVEL EVALUATION COMPLEXITY LEVEL: HISTORY: Medium (DM, OA, CA, fibromyalgia), EXAM OF BODY SYSTEMS: Medium (pain, muscle tightness, muscle weakness, ), CLINICAL PRESENTATION: Medium (evolving), CLINICAL DECISION MAKING: Medium Assessment Assessment: pt presents with low back pain, pain in cervical and scapular area, decreased strength, muscle tightness, trigger points and muscle guarding noted in lumbosacral area. Patient Education: Home Exercise Program, Education of Plan of Care Rehab Potential: Good Short Term Goals Goal #1: pt independent with initial HEP Goal to be met by: 08/26/17 Goal #2: Decreased hamstring tightness BLE. Goal to be met by: 08/26/17 Goal #3: pt report decreased pain to allow her to tolerate light activities in home Goal to be met by: 08/26/17 Goal #4: . Long-Term Goals Goal #1: Pt knows HEP and to continue ex's to maintain level of function at D/C. Goal to be met by: 09/16/17 Goal #2: Score on Oswestry LBP scale improved to equal or less than 19% impairment. Goal to be met by: 09/16/17 Goal #3: pt report ability to sleep through the night without interruption Goal to be met by: 09/16/17 Goal #4: pt report ability to return to most normal daily activities Goal to be met by: 09/16/17 Plan - Treatment to be Provided Procedures: Therapeutic Exercises, Therapeutic Activity, Manual Therapy, Massage , Patient Education Modalities: Cryotherapy, Hot Packs, Mechanical Traction (lumbar) - Treatment Plan Frequency: 2-3 X week Duration: 6 weeks ORDER # VISITS AND/OR THROUGH DATE: 09/16/17 - Treatment Code (1) Disc degeneration, lumbar Code(s): M51.36 - OTHER INTERVERTEBRAL DISC DEGENERATION, LUMBAR REGION (2) Muscle tightness Code(s): M62.89 - OTHER SPECIFIED DISORDERS OF MUSCLE (3) Low back pain Code(s): M54.5 - LOW BACK PAIN Qualifiers: Chronicity: unspecified Back pain laterality: unspecified Sciatica presence: without sciatica Qualified Code(s): M54.5 - Low back pain
--- NOTE | 2017-08-07 15:30 | RS.OPPTDN ---
Subjective Date of Note: 08/07/17 Visit #: 2 Date of Evaluation: 08/05/17 Payer Source: MEDICARE Treatment Diagnosis: Lumbar disc degeneration Current Subjective/complaints:: Reports her body feels "heavy ",even when the pain is tolerable. *Precautions: pt with h/o breast CA Pain Assessment - Pain Description Pain Location: cervical/shoulders,and lumbar Pain Description: Dull, Aching, Chronic Current Pain Intensity: 4 - Heat/Cryotherapy Treatment: Hot Pack (20 mins. to lumbar and cervical prior to exercises) Interventions - Exercise/Activities/Manual Therapy Exercises/Activities: 50 mins.total of exercise,including heel cord stretches, SKTC,DKTC,pelvic tilts,90/90 hamstring stretches,piriformis stretches,lower trunk rotation in hooklying position.Manually assisted lumbar intermittent traction x 3 mins.Seated shoulder horizontal abduction/adduction ,emphasizing proper sitting posture.Reviewed cervical ROM and scapular exercises. Total minutes of Exercise: 50 Manual Therapy: NA Total minutes of Manual Therapy: 0 HOME EXERCISE PROGRAM: pt given written HEP including hamstring stretch, piriformis stretch, double knee to chest, lumbar rotation, standing lum ext. - Charges Timed Code Treatment Minutes: 50 Total Treatment Time: 70 Procedures billed for this date of service:: hp,ex 3 Assessment: Patient has moderate tightness in bilateral hamstrings today, tolerates stretches fairly well today,reports slight increase in L aspect of her middle and low back with lower trunk rotation.She does not appear to have leg length discrepancy in supine today. Patient Education: Education of diagnosis, Body/Joint mechanics, Home Exercise Program, Home Safety, Activity Modification, Education of Plan of Care Patient demonstrates compliance with HEP?: Yes Short Term Goals Goal #1: pt independent with initial HEP Goal to be met by: 08/26/17 Progress towards Goal:: Progressing Goal #2: Decreased hamstring tightness BLE. Goal to be met by: 08/26/17 Progress towards Goal:: Progressing Goal #3: pt report decreased pain to allow her to tolerate light activities in home Goal to be met by: 08/26/17 Goal #4: . Test Development Engineer Goals Goal #1: Pt knows HEP and to continue ex's to maintain level of function at D/C. Goal to be met by: 09/16/17 Progress towards goal: Progressing Goal #2: Score on Oswestry LBP scale improved to equal or less than 19% impairment. Goal to be met by: 09/16/17 Goal #3: pt report ability to sleep through the night without interruption Goal to be met by: 09/16/17 Goal #4: pt report ability to return to most normal daily activities Goal to be met by: 09/16/17 Plan PLAN OF CARE EXPIRES ON:: 09/16/17 ORDER # VISITS AND/OR THROUGH DATE: 09/16/17 PLAN: Continue PT to decrease pain ,improve strength and flexibility in the core and both the upper /lower extremities.
== END 2017-08-08 23:59 | disposition short-term general hospital (02) ==
PROVIDERS: ATTEND Emergency Medicine
DX: M51.36 Other intervertebral disc degeneration, lumbar region (principal); M62.89 Other specified disorders of muscle; M54.5 Low back pain

== ENCOUNTER 2017-09-04 11:00 | Outpatient (RCR) ==
--- NOTE | 2017-08-11 16:28 | RS.OPPTDN ---
Subjective Date of Note: 08/11/17 Visit #: 3 Date of Evaluation: 08/05/17 Payer Source: MEDICARE Treatment Diagnosis: Lumbar disc degeneration Current Subjective/complaints:: Patient says treatment seems to be helping. Reports no elevation in pain due to beginning therex, but also says she needs to be more disciplined. She says she has tightness to her neck and low back that causes her to have trouble sleeping. *Precautions: pt with h/o breast CA - Heat/Cryotherapy Treatment: Hot Pack (15 mins cervical and mid to low back in supine) Interventions - Exercise/Activities/Manual Therapy Exercises/Activities: Patient receives passive stretching: SKTC, HS, Piriformis , heel cord, lower trunk rotation bilaterally x 4. Manual long axis distraction for the R LE x 5 reps with 10-15 sec holds. Patient performs isometric hip flexion/abd/add x 10. Cspine passive ROM for SB/rotation. Encouraged routine HEP and postural techniques. Total minutes of Exercise: 33 Manual Therapy: NA HOME EXERCISE PROGRAM: pt given written HEP including hamstring stretch, piriformis stretch, double knee to chest, lumbar rotation, standing lum ext. - Charges Timed Code Treatment Minutes: 33 Total Treatment Time: 53 Procedures billed for this date of service:: hp, ex2 Assessment: Patient with intermittent moderate LBP and cervical/upper back pain which she attributes to history of tightness/fibromyalgia. She demo moderate mm guarding to the bilateral UT, particularly on the L side. History of cyst removal to this area, which may contribute to the excess tone and limited ROM. Patient Education: Body/Joint mechanics, Home Exercise Program, Education of Plan of Care Short Term Goals Goal #1: pt independent with initial HEP Goal to be met by: 08/26/17 Progress towards Goal:: Progressing Goal #2: Decreased hamstring tightness BLE. Goal to be met by: 08/26/17 Progress towards Goal:: Progressing Goal #3: pt report decreased pain to allow her to tolerate light activities in home Goal to be met by: 08/26/17 Goal #4: . Psychiatric Cns Goals Goal #1: Pt knows HEP and to continue ex's to maintain level of function at D/C. Goal to be met by: 09/16/17 Progress towards goal: Progressing Goal #2: Score on Oswestry LBP scale improved to equal or less than 19% impairment. Goal to be met by: 09/16/17 Goal #3: pt report ability to sleep through the night without interruption Goal to be met by: 09/16/17 Goal #4: pt report ability to return to most normal daily activities Goal to be met by: 09/16/17 Plan PLAN OF CARE EXPIRES ON:: 09/16/17 ORDER # VISITS AND/OR THROUGH DATE: 09/16/17 PLAN: Patient to continue 2-3 times per week
--- NOTE | 2017-08-13 15:50 | RS.OPPTDN ---
Subjective Date of Note: 08/13/17 Visit #: 4 Date of Evaluation: 08/05/17 Payer Source: MEDICARE Treatment Diagnosis: Lumbar disc degeneration Current Subjective/complaints:: Patient reports she is very tight and cannot seem to relax her muscles. Reports back pain as well as pain throughout her upper back, neck, and shoulders. *Precautions: pt with h/o breast CA Pain Assessment - Pain Description Pain Location: Lowback and upper back, neck and shoulders Pain Description: Tightness, Dull, Aching Current Pain Intensity: moderate - Heat/Cryotherapy Treatment: Hot Pack ([id number] to the mid to lowback and cervical spine prior to EX. patient in supine. ) Interventions - Exercise/Activities/Manual Therapy Exercises/Activities: Assisted SKTC, HS, Piriformis, heel cord, lower trunk rotation bilaterally. Manual long axis distraction for each LE 10-15 sec holds. Patient performs isometric hip flexion, abduction, adduction. SLR and SLR/VMO. Red theraband for resistive hip add and abd. Assisted manual traction to c-spine. Passive cervical ROM for lateral flexion. In sitting, assisted lateral flexion, rotation, and scap stretch with UE across body. Reveiwed HEP and safety with ADL's. Discussed walking and light exercise in pool. Total minutes of Exercise: 41mins Manual Therapy: NA HOME EXERCISE PROGRAM: pt given written HEP including hamstring stretch, piriformis stretch, double knee to chest, lumbar rotation, standing lum ext. - Charges Timed Code Treatment Minutes: 41mins Total Treatment Time: 61mins Procedures billed for this date of service:: HP, EXx3 Assessment: Patient progressing with exercise. She reports a good response to assisted stretching today, with increased flexibility. Patient Education: Body/Joint mechanics, Home Exercise Program, Activity Modification Patient demonstrates compliance with HEP?: Yes Short Term Goals Goal #1: pt independent with initial HEP Goal to be met by: 08/26/17 Progress towards Goal:: Partially Met Goal #2: Decreased hamstring tightness BLE. Goal to be met by: 08/26/17 Progress towards Goal:: Progressing Goal #3: pt report decreased pain to allow her to tolerate light activities in home Goal to be met by: 08/26/17 Goal #4: . Strategic Intelligence Officer Goals Goal #1: Pt knows HEP and to continue ex's to maintain level of function at D/C. Goal to be met by: 09/16/17 Progress towards goal: Progressing Goal #2: Score on Oswestry LBP scale improved to equal or less than 19% impairment. Goal to be met by: 09/16/17 Goal #3: pt report ability to sleep through the night without interruption Goal to be met by: 09/16/17 Goal #4: pt report ability to return to most normal daily activities Goal to be met by: 09/16/17 Plan PLAN OF CARE EXPIRES ON:: 09/16/17 ORDER # VISITS AND/OR THROUGH DATE: 09/16/17 PLAN: Continue and progress exercise to reduce pain and tightness and to increase functional activity level.
--- NOTE | 2017-08-18 12:47 | RS.OPPTDN ---
Subjective Date of Note: 08/18/17 Visit #: 5 Date of Evaluation: 08/05/17 Payer Source: MEDICARE Treatment Diagnosis: Lumbar disc degeneration Current Subjective/complaints:: Patient reports she feels ," a little looser" , but the pain is about the same. *Precautions: pt with h/o breast CA Pain Assessment - Pain Description Pain Location: neck,lumbar Pain Description: Tightness, Dull, Aching, Chronic Current Pain Intensity: 3/10 - Heat/Cryotherapy Treatment: Hot Pack (20 mins. to lumbar and traps. prior to exercise and traction) - Traction Treatment Method: Mechanical, Intermittent, Lumbar Patient Position: Supine Amount of Force Applied: 50 # Hold Time: 30 secs. Rest Time: 5 secs. Duration of treatment: 10 mins. Traction Treatment Comment: Tolerates well. Interventions - Exercise/Activities/Manual Therapy Exercises/Activities: Passive stretches of SKTC,DKTC,hamstring and piriformis stretches Total minutes of Exercise: 20 Manual Therapy: NA Total minutes of Manual Therapy: 0 HOME EXERCISE PROGRAM: pt given written HEP including hamstring stretch, piriformis stretch, double knee to chest, lumbar rotation, standing lum ext. - Charges Timed Code Treatment Minutes: 30 Total Treatment Time: 50 Procedures billed for this date of service:: hp,exercise, lumbar traction Assessment: Patient has slight increase in back pain with R SKTC today.She responds to hamstring stretches well,has no sciatic pain present today.She tolerates traction without increased pain .She is motivated to improve. Patient Education: Body/Joint mechanics, Education of Plan of Care Short Term Goals Goal #1: pt independent with initial HEP Goal to be met by: 08/26/17 Progress towards Goal:: Partially Met Goal #2: Decreased hamstring tightness BLE. Goal to be met by: 08/26/17 Progress towards Goal:: Progressing Goal #3: pt report decreased pain to allow her to tolerate light activities in home Goal to be met by: 08/26/17 Goal #4: . Retail Gift Card Merchandising Goals Goal #1: Pt knows HEP and to continue ex's to maintain level of function at D/C. Goal to be met by: 09/16/17 Progress towards goal: Progressing Goal #2: Score on Oswestry LBP scale improved to equal or less than 19% impairment. Goal to be met by: 09/16/17 Goal #3: pt report ability to sleep through the night without interruption Goal to be met by: 09/16/17 Goal #4: pt report ability to return to most normal daily activities Goal to be met by: 09/16/17 Plan PLAN OF CARE EXPIRES ON:: 09/16/17 ORDER # VISITS AND/OR THROUGH DATE: 09/16/17 PLAN: Continue PT to redice/eliminate back pain ,return to highest LOF .
--- NOTE | 2017-08-20 13:58 | RS.OPPTDN ---
Subjective Date of Note: 08/20/17 Visit #: 6 Date of Evaluation: 08/05/17 Payer Source: MEDICARE Treatment Diagnosis: Lumbar disc degeneration Current Subjective/complaints:: Patient reports feeling better today,feels less tight ,able to relax more . *Precautions: pt with h/o breast CA Pain Assessment - Pain Description Pain Location: lumbarand cervical Pain Description: Aching, Chronic Worst Pain Intensity: not rated - Heat/Cryotherapy Treatment: Hot Pack (20 mins. prior to exercises and traction) - Traction Treatment Method: Mechanical, Intermittent, Lumbar Patient Position: Supine Amount of Force Applied: 50 # Hold Time: 30 secs. Rest Time: 5 secs. Duration of treatment: 15 mins. Traction Treatment Comment: Tolerates well. Interventions - Exercise/Activities/Manual Therapy Exercises/Activities: Passive stretches of SKTC,DKTC,hamstring and piriformis stretches Total minutes of Exercise: 20 Manual Therapy: NA Total minutes of Manual Therapy: 0 HOME EXERCISE PROGRAM: pt given written HEP including hamstring stretch, piriformis stretch, double knee to chest, lumbar rotation, standing lum ext. - Charges Timed Code Treatment Minutes: 35 Total Treatment Time: 55 Procedures billed for this date of service:: hp,ex ,traction Assessment: Patient has improved felxibility in the hamstrings and lumbar today ,with only stretch discomfort present.She feels the traction is helpful,no pain afterwards.She contines to be very motivated to improve. Patient Education: Education of diagnosis, Body/Joint mechanics, Home Exercise Program, Home Safety, Activity Modification, Education of Plan of Care Patient demonstrates compliance with HEP?: Yes Short Term Goals Goal #1: pt independent with initial HEP Goal to be met by: 08/26/17 Progress towards Goal:: Partially Met Goal #2: Decreased hamstring tightness BLE. Goal to be met by: 08/26/17 Progress towards Goal:: Progressing Goal #3: pt report decreased pain to allow her to tolerate light activities in home Goal to be met by: 08/26/17 Progress towards Goal:: Progressing Goal #4: . Quality Assurance Engineer Goals Goal #1: Pt knows HEP and to continue ex's to maintain level of function at D/C. Goal to be met by: 09/16/17 Progress towards goal: Progressing Goal #2: Score on Oswestry LBP scale improved to equal or less than 19% impairment. Goal to be met by: 09/16/17 Goal #3: pt report ability to sleep through the night without interruption Goal to be met by: 09/16/17 Goal #4: pt report ability to return to most normal daily activities Goal to be met by: 09/16/17 Plan PLAN OF CARE EXPIRES ON:: 09/16/17 ORDER # VISITS AND/OR THROUGH DATE: 09/16/17 PLAN: Continue PT to decrease back pain .
--- NOTE | 2017-09-02 12:49 | RS.OPPTDN ---
Subjective Date of Note: 09/02/17 Visit #: 7 Date of Evaluation: 08/05/17 Payer Source: MEDICARE Treatment Diagnosis: Lumbar disc degeneration Current Subjective/complaints:: Patient reports no pain today,but feels tight and has recently had a couple of episodes of severe muscle cramps in the L thigh. *Precautions: pt with h/o breast CA Pain Assessment - Pain Description Pain Location: lumbar and R thigh when present(none today) Pain Description: Tightness - Heat/Cryotherapy Treatment: Hot Pack (20 is. prior to exercises and traction) - Traction Treatment Method: Mechanical, Intermittent, Lumbar Patient Position: Supine Amount of Force Applied: 55# Hold Time: 30 secs. Rest Time: 5 secs. Duration of treatment: 20 mins. Traction Treatment Comment: Tolerates well. Interventions - Exercise/Activities/Manual Therapy Exercises/Activities: Passive stretches of SKTC,DKTC,LTR,90/90 hamstring and piriformis stretches. Total minutes of Exercise: 20 Manual Therapy: NA Total minutes of Manual Therapy: 0 HOME EXERCISE PROGRAM: pt given written HEP including hamstring stretch, piriformis stretch, double knee to chest, lumbar rotation, standing lum ext. - Charges Timed Code Treatment Minutes: 40 Total Treatment Time: 60 Procedures billed for this date of service:: hp,ex ,traction Assessment: Patient progressing well,reports being able to climb stairs with less difficuty on recent vacation.She has no sharp pain present today,and no complaints while on traction.Her L hamstring group has moderate tightness present ,but responds well to stretches. Patient Education: Body/Joint mechanics, Home Exercise Program, Home Safety, Activity Modification, Education of Plan of Care Patient demonstrates compliance with HEP?: Yes Short Term Goals Goal #1: pt independent with initial HEP Goal to be met by: 08/26/17 Progress towards Goal:: Partially Met Goal #2: Decreased hamstring tightness BLE. Goal to be met by: 08/26/17 Progress towards Goal:: Progressing Goal #3: pt report decreased pain to allow her to tolerate light activities in home Goal to be met by: 08/26/17 Progress towards Goal:: Partially Met Goal #4: . Fdc Goals Goal #1: Pt knows HEP and to continue ex's to maintain level of function at D/C. Goal to be met by: 09/16/17 Progress towards goal: Progressing Goal #2: Score on Oswestry LBP scale improved to equal or less than 19% impairment. Goal to be met by: 09/16/17 Goal #3: pt report ability to sleep through the night without interruption Goal to be met by: 09/16/17 Progress towards goal: Progressing Goal #4: pt report ability to return to most normal daily activities Goal to be met by: 09/16/17 Progress towards goal: Progressing Plan PLAN OF CARE EXPIRES ON:: 09/16/17 ORDER # VISITS AND/OR THROUGH DATE: 09/16/17 PLAN: Continue PT to reduce/elminate lumbar and LE pain,returning to PLOF.
--- NOTE | 2017-09-04 13:09 | RS.OPPTDN ---
Subjective Date of Note: 09/04/17 Visit #: 8 Date of Evaluation: 08/05/17 Payer Source: MEDICARE Treatment Diagnosis: Lumbar disc degeneration Current Subjective/complaints:: Patient reports not feeling as well today,has dull aching in the low back.She also reports feeling restless. *Precautions: pt with h/o breast CA Pain Assessment - Pain Description Pain Location: lumbar Pain Description: Dull, Aching Current Pain Intensity: 3/10 Other Comments regarding Pain:: Difficulty relaxing today due to lumbar pain. - Heat/Cryotherapy Treatment: Hot Pack (20 mins. prior to lumbar traction) - Traction Treatment Method: Mechanical, Intermittent, Lumbar Patient Position: Supine Amount of Force Applied: 55# Hold Time: 30 secs. Rest Time: 5 secs. Duration of treatment: 20 mins. Traction Treatment Comment: Tolerates well. Interventions - Exercise/Activities/Manual Therapy Exercises/Activities: Passive stretches of SKTC,DKTC only x 5 mins. , stopped due to back dsicomfort. Total minutes of Exercise: 50 Manual Therapy: NA HOME EXERCISE PROGRAM: pt given written HEP including hamstring stretch, piriformis stretch, double knee to chest, lumbar rotation, standing lum ext. - Charges Timed Code Treatment Minutes: 20 Total Treatment Time: 45 Procedures billed for this date of service:: hp,traction ( no charge for exercise today ) Assessment: Patient tolerates traction well,but the stretches today cause increased back discomfort.She does get relief from the lumbar traction .She is attentive and motivated to improve. Patient Education: Body/Joint mechanics, Home Exercise Program, Education of Plan of Care Patient demonstrates compliance with HEP?: Yes Short Term Goals Goal #1: pt independent with initial HEP Goal to be met by: 08/26/17 Progress towards Goal:: Partially Met Goal #2: Decreased hamstring tightness BLE. Goal to be met by: 08/26/17 Progress towards Goal:: Partially Met Goal #3: pt report decreased pain to allow her to tolerate light activities in home Goal to be met by: 08/26/17 Progress towards Goal:: Met Goal #4: . [employer] Room Goals Goal #1: Pt knows HEP and to continue ex's to maintain level of function at D/C. Goal to be met by: 09/16/17 Progress towards goal: Progressing Goal #2: Score on Oswestry LBP scale improved to equal or less than 19% impairment. Goal to be met by: 09/16/17 Goal #3: pt report ability to sleep through the night without interruption Goal to be met by: 09/16/17 Progress towards goal: Partially Met Goal #4: pt report ability to return to most normal daily activities Goal to be met by: 09/16/17 Progress towards goal: Progressing Plan PLAN OF CARE EXPIRES ON:: 09/16/17 ORDER # VISITS AND/OR THROUGH DATE: 09/16/17 PLAN: Continue PT to reduce/eliminate back pain.
--- NOTE | 2017-09-07 08:56 | RS.CXNS ---
Date of scheduled appointment: 09/07/17 Type: Cancel Reason for Cancel/NS: Re-scheduled for 09-11-17.
== END 2017-09-08 23:59 ==
PROVIDERS: ATTEND Emergency Medicine
DX: M51.36 Other intervertebral disc degeneration, lumbar region (principal); M62.89 Other specified disorders of muscle; M54.5 Low back pain

== ENCOUNTER 2017-09-14 11:00 | Outpatient (RCR) ==
--- NOTE | 2017-09-09 08:56 | RS.CXNS ---
Date of scheduled appointment: 09/09/17 Type: Cancel Reason for Cancel/NS: Called ,she is sick today.
--- NOTE | 2017-09-11 14:25 | RS.OPPTDN ---
Subjective Date of Note: 09/11/17 Visit #: 9 Date of Evaluation: 08/05/17 Payer Source: MEDICARE Treatment Diagnosis: Lumbar disc degeneration Current Subjective/complaints:: Patient reports feeling retless the past few days.She is compliant to HP,has done them this morning . *Precautions: pt with h/o breast CA Pain Assessment - Pain Description Pain Location: lumbar Pain Description: Dull, Aching Current Pain Intensity: not rated today - Traction Treatment Method: Mechanical, Intermittent, Lumbar Patient Position: Supine Amount of Force Applied: 55# Hold Time: 30 secs. Rest Time: 5 secs. Duration of treatment: 20 mins. Traction Treatment Comment: Tolerates well. Interventions - Exercise/Activities/Manual Therapy Exercises/Activities: Passive stretches of SKTC,DKTC only x 5 mins. , stopped due to back dsicomfort. Manual Therapy: NA HOME EXERCISE PROGRAM: pt given written HEP including hamstring stretch, piriformis stretch, double knee to chest, lumbar rotation, standing lum ext. - Charges Timed Code Treatment Minutes: 20 Total Treatment Time: 40 Procedures billed for this date of service:: hp,traction Assessment: Patient reports less intensity ,less duration and less frequency of back pain.She is compliant to HEP,motivated to return to highest LOF possible.Her bilateral hamstring extensibility has improved,has better standing posture. Patient Education: Education of diagnosis, Body/Joint mechanics, Home Exercise Program, Home Safety, Activity Modification, Education of Plan of Care Patient demonstrates compliance with HEP?: Yes Short Term Goals Goal #1: pt independent with initial HEP Goal to be met by: 08/26/17 Progress towards Goal:: Met Goal #2: Decreased hamstring tightness BLE. Goal to be met by: 08/26/17 Progress towards Goal:: Partially Met Goal #3: pt report decreased pain to allow her to tolerate light activities in home Goal to be met by: 08/26/17 Progress towards Goal:: Met Goal #4: . Correction Goals Goal #1: Pt knows HEP and to continue ex's to maintain level of function at D/C. Goal to be met by: 09/16/17 Progress towards goal: Met Goal #2: Score on Oswestry LBP scale improved to equal or less than 19% impairment. Goal to be met by: 09/16/17 Progress towards goal: Progressing Goal #3: pt report ability to sleep through the night without interruption Goal to be met by: 09/16/17 Progress towards goal: Partially Met Goal #4: pt report ability to return to most normal daily activities Goal to be met by: 09/16/17 Progress towards goal: Partially Met Plan PLAN OF CARE EXPIRES ON:: 09/16/17 ORDER # VISITS AND/OR THROUGH DATE: 09/16/17 PLAN: Continue PT to return to PLOF ,plan to D/C next week due to approaching rehab potential.
--- NOTE | 2017-09-14 13:00 | RS.OPPTDN ---
Subjective Date of Note: 09/14/17 Visit #: 10 Date of Evaluation: 08/05/17 Payer Source: MEDICARE Treatment Diagnosis: Lumbar disc degeneration Current Subjective/complaints:: Pleased with her progress,is aware of D/C plan today.She feels comfortable with HEP and pain control if present ,using heat or cold. *Precautions: pt with h/o breast CA Pain Assessment - Pain Description Pain Location: lumbar Pain Description: Dull, Aching Current Pain Intensity: 1 - Traction Treatment Method: Mechanical, Intermittent, Lumbar Patient Position: Supine Amount of Force Applied: 55# Hold Time: 30 secs. Rest Time: 5 secs. Duration of treatment: 20 mins. Traction Treatment Comment: Tolerates well. Interventions - Exercise/Activities/Manual Therapy Exercises/Activities: Passive stretches of SKTC,DKTC ,90/90 hamstring stretches, LTR,piriformis stretches. Total minutes of Exercise: 20 Manual Therapy: NA Total minutes of Manual Therapy: 0 HOME EXERCISE PROGRAM: pt given written HEP including hamstring stretch, piriformis stretch, double knee to chest, lumbar rotation, standing lum ext. - Charges Timed Code Treatment Minutes: 40 Total Treatment Time: 60 Procedures billed for this date of service:: hp,traction ,ex 1 Assessment: Patient progressed well,tolerating most of her daily activities with minimal soreness,as opposed to sharp pain now.She has improve extensibility in hamstrings,lessening of LBP.She is motivated to improve and compliant to recommendations of the therapy staff.She is aware of D/C plan today. Patient Education: Education of diagnosis, Body/Joint mechanics, Home Exercise Program, Home Safety, Activity Modification, Education of Plan of Care Patient demonstrates compliance with HEP?: Yes Short Term Goals Goal #1: pt independent with initial HEP Goal to be met by: 08/26/17 Progress towards Goal:: Met Goal #2: Decreased hamstring tightness BLE. Goal to be met by: 08/26/17 (90%) Progress towards Goal:: Partially Met Goal #3: pt report decreased pain to allow her to tolerate light activities in home Goal to be met by: 08/26/17 Progress towards Goal:: Met Goal #4: . [facility] Goals Goal #1: Pt knows HEP and to continue ex's to maintain level of function at D/C. Goal to be met by: 09/16/17 Progress towards goal: Met Goal #2: Score on Oswestry LBP scale improved to equal or less than 19% impairment. Goal to be met by: 09/16/17 (34%) Progress towards goal: Not Met Comments: patient also has diagnosis of fibromyalgia Goal #3: pt report ability to sleep through the night without interruption Goal to be met by: 09/16/17 Progress towards goal: Met Goal #4: pt report ability to return to most normal daily activities Goal to be met by: 09/16/17 Progress towards goal: Met Plan PLAN OF CARE EXPIRES ON:: 09/16/17 ORDER # VISITS AND/OR THROUGH DATE: 09/16/17 PLAN: D/C due to good progress.
--- NOTE | 2017-09-16 14:48 | RS.OPPTDC ---
Date of Discharge: 09/14/17 Date of Evaluation: 08/05/17 Number of Visits: 10 Treatment Diagnosis: Lumbar disc degeneration Current Level of Function: pt with hamstring flexibility is WNL in 90/90. pt tolerates ADL's with less pain. She reports only soreness as opposed to sharp pain. She is able to sleep through the night. LBP is 1/10. Current Complaints/Gains: Patient states she is pleased with her progress with therapy. States she feels so much better than when she started therapy. Reports no pain on last visit and feels confident with HEP. Reports being able to sleep without limitation from pain. Reports being able to ascend and descend steps much better with better safety and minimal to no pain. Pain Assessment - Pain Description Pain Location: LBP Current Pain Intensity: 1/10 Functional Outcome Measure UE Functional Index: 17 (34) - G Codes & Severity Modifier G Codes & Modifier: mobility walking and moving around: goal CI. mobility walking and moving around: DC CJ Source of G Code score: oswestry LBP Observation - Observation Posture: Forward Head, Rounded Shoulders, Increased Thoracic Kyphosis, Decreased Lumbar Lordosis Handedness: Right Gait - Gait Pattern General Gait Pattern Observation: No Deviations/Normal General Range of Motion: WFL's Muscle Strength: WFL's Interventions - Exercise/Activities/Manual Therapy Exercises/Activities: n/a Manual Therapy: NA HOME EXERCISE PROGRAM: pt given written HEP including hamstring stretch, piriformis stretch, double knee to chest, lumbar rotation, standing lum ext. - Charges Timed Code Treatment Minutes: n/a Total Treatment Time: n/a Procedures billed for this date of service:: n/a Assessment Assessment: pt made significant progress with flexibility, decreased pain. pt has met STG 1, 3 and LTG 1, 3, 4. Patient Education: Home Exercise Program, Education of Plan of Care Rehab Potential: Good Short Term Goals Goal #1: pt independent with initial HEP Goal to be met by: 08/26/17 Progress towards Goal:: Met Goal #2: Decreased hamstring tightness BLE. Goal to be met by: 08/26/17 (90%) Progress towards Goal:: Partially Met Goal #3: pt report decreased pain to allow her to tolerate light activities in home Goal to be met by: 08/26/17 Progress towards Goal:: Met Goal #4: . [employer] Goals Goal #1: Pt knows HEP and to continue ex's to maintain level of function at D/C. Goal to be met by: 09/16/17 Progress towards goal: Met Goal #2: Score on Oswestry LBP scale improved to equal or less than 19% impairment. Goal to be met by: 09/16/17 (34%) Progress towards goal: Not Met Goal #3: pt report ability to sleep through the night without interruption Goal to be met by: 09/16/17 Progress towards goal: Met Goal #4: pt report ability to return to most normal daily activities Goal to be met by: 09/16/17 Progress towards goal: Met Plan Reason for Discharge:: Maximum Potential Met
== END 2017-10-09 23:59 ==
PROVIDERS: ATTEND Emergency Medicine
DX: M51.36 Other intervertebral disc degeneration, lumbar region (principal); M62.89 Other specified disorders of muscle; M54.5 Low back pain